=== PATIENT | male | born 1945 | race Caucasian/White ===

== ENCOUNTER 2016-08-06 07:07 | Day surgery (SDC) | payer MEDICARE, BC ==
[2016-08-06 07:54] LABS: LEUKOCYTES/URINE NEG (NEGATIVE); NITRITE/URINE NEG (NEGATIVE); RBC/URINE 40-50 (0-2); URINE OCCULT BLOOD 2+ (NEG/TRACE); WBC/URINE 0-2 (0-2)
[2016-08-06 08:00] LABS: AUTOMATED BASOPHIL 0.7 % (0-2); AUTOMATED EOSINOPHIL 2.1 % (0-5); AUTOMATED LYMPH 21.1 % (17-44); AUTOMATED MONOCYTE 8.8 % (3-10); AUTOMATED NEUTROPHIL 67.3 % (45-76); MPV 9.1 fL (7.4-10.4)
[2016-08-06] MEDS ORDERED: BUPIVACAINE 0.5% 30 ML VIAL ONE (08:11)
[2016-08-06 08:12] LABS: BLOOD UREA NITROGEN 27 MG/DL (9-20); CALCULATED OSMOLALITY 280 MOs/Kg (270-290); CHLORIDE 108 mEq/L (98-107); GLUCOSE 127 MG/DL (70-99); SODIUM LEVEL 142 mEq/L (137-146); TOTAL PROTEIN 7.8 G/DL (6.3-8.2)
--- NOTE | 2016-08-06 08:22 | HIM.ANES ---
Anesthesia Evaluation & Plan Diagnoses: INCISIONAL HERNIA WITHOUT OBSTRUCTION OR GANGRENE (08/06/16) Consented Procedure: LAPAROSCOPIC INCISIONAL HERNIA REPAIR - Focused Review of Systems Cardiac History: No: Hx Hypertension, Hx Angina, Hx Heart Attack, Hx Coronary Stent, Hx Cardiac Disorders HEENT: Yes: Hx Hearing Impairment ([place]), Other HEENT Problems Hx Other HEENT Problems: ALLERGIC RHINNITIS Respiratory: Yes: Hx Sleep Apnea (MILD DOES NOT NEED CPAP MACHINE), Hx Snoring No: Hx Pneumonia () Gastrointestinal: Yes: Hx Gastroesophageal Reflux Disease, Hx Hiatal Hernia, Hx Gastrointestinal Disorders, Hx Colonoscopy (2012), Hx Endoscopy (2012) Neurological/Musculoskeletal: No: HX Cerebrovascular Accident, Hx Neurological Disorders Psychological: No Hx Depression, No Hx Mental/Emotional Disorders Blood/Autoimmune: Yes: Hx Blood Transfusions (05/2013 MULTIPLE BLOOD TRANSFUSIONS), Hx Anemia No: Hx AIDS, Hx Hepatitis (type) Smoking Status: Former smoker Surgical History: Yes: Back (CERVICAL FUSION) Other Surgical History: 05/2013 LAPROSCOPIC SURGERY TO STOP GASTRIC BLEEDING-2012 LEFT KIDNEY STONE REMOVAL SKIN LESION REMOVAL ON EAR - Focused Physical Exam NPO since: 08/05/161999 Mallampati: Class II Thyromental Distance: Greater than 3 Neck: Limited Range of Motion Dental: Normal - no significant findings Cardiovascular/Chest: Normal Respiratory: Decreased breath sounds Any problems with anesthesia, including nausea and vomiting?: No Any relatives with a history of Malignant Hyperthermia?: No Does patient have a history of Malignant Hyperthermia?: No Beta Laura given (if appropriate): N/A Does the patient have a history of Motion Sickness-: Yes Other: Problem List Problem Status Onset Acute respiratory failure Acute Debility Acute Duodenal ulcer with hemorrhage Acute Gastric ulcer with hemorrhage Acute Gastrointestinal hemorrhage requiring more than four units of blood in 24 hours , admission to ICU, or surgery Acute MRSA pneumonia Acute Migraine headache without aura Acute Osteomyelitis hip Acute Shocks, hemorrhagic Acute Systemic inflammatory response syndrome (SIRS) Acute CBC/BMP/Other 08/06/16 07:50 08/06/16 07:50 Allergies Allergy/AdvReac Type Severity Reaction Status Date / Time No Known Allergies Allergy Verified 08/06/16 08:13 Home Medications Medication Instructions Recorded Last Taken Type Pantoprazole Sodium [Protonix] 40 mg PO DAILY 08/27/13 08/05/16 07:00 History Height and Weight Patient's height 5 ft 10 in Patient's weight 95.254 kg BMI 28.7 Vital Signs Temperature 99.0 F 08/06/16 08:02 Pulse Rate 57 L 08/06/16 08:02 Respiratory Rate 18 08/06/16 08:02 Blood Pressure 130/66 08/06/16 08:02 Pulse Oxygen Saturation 95 08/06/16 08:02 METS - Level of Activity: Climbing stairs(1 flight),walking level ground, running short distance - Anesthetic Plan Anesthesia Type: General ASA Class: 3 -: I have examined this patient and reviewed the medical record. The patient has been assessed prior to anesthesia. Risks and benefits of anesthesia and anesthetic technique options have been discussed and all questions answered. The patient accepts the risk and desires me to proceed with the planned anesthetic.
[2016-08-06] MEDS ORDERED: MEPERIDINE 25 MG/ML TUBEX IV PRN ×2 (08:32→08:35)
[2016-08-06] MEDS ORDERED: hydrALAZINE 20 MG/ML VIAL IV PRN ×2 (08:32→08:35)
[2016-08-06] MEDS ORDERED: ONDANSETRON HCL 4 MG/2 ML VIAL IV PRN ×3 (08:32→11:57)
[2016-08-06] MEDS ORDERED: HYDROmorphone 1 MG INJECTION IV PRN ×4 (08:32→08:35)
[2016-08-06] MEDS ORDERED: ONDANSETRON HCL 4 MG ODT TAB PO PRN ×2 (08:32→08:35)
[2016-08-06] MEDS ORDERED: LABETALOL 20 MG/4 ML SYRINGE IV PRN ×2 (08:32→08:35)
[2016-08-06] MEDS ORDERED: SCOPOLAMINE TRANSDERMAL PATCH TOP ONE ×2 (08:32→08:36)
[2016-08-06] MEDS ORDERED: FENTANYL 100 MCG/2 ML VIAL IV PRN ×3 (08:32→08:35)
[2016-08-06] MEDS ORDERED: CEFAZOLIN 1 GM VIAL ONE (08:39)
--- NOTE | 2016-08-06 10:49 | HIMOPRPT ---
DATE OF PROCEDURE: 08/06/16 PREOPERATIVE DIAGNOSIS: Incarcerated incisional hernia, incarcerated umbilical hernia. POSTOPERATIVE DIAGNOSIS: Incarcerated incisional hernia incarcerated umbilical hernia. PROCEDURE: Laparoscopic repair of incarcerated incisional hernia with placement of mesh (11 cm silicone coated mesh by Surgimesh), laparoscopic repair of incarcerated umbilical hernia with placement of mesh (6.4 cm Ventralex). SURGEON: Christopher Martinez M.D. ANESTHESIA: General. COMPLICATIONS: None. SPECIMEN: None. PACKINGS AND DRAINS: None. ESTIMATED BLOOD LOSS: 3 cc OPERATIVE FINDINGS AND TECHNIQUE: With consent, the patient was brought to the operative suite and placed in supine position. Following general anesthesia, the abdomen was prepped and draped in usual fashion. A left upper quadrant incision was made. Dissection was carried down to the musculofascial layers and the peritoneal cavity was entered under direct vision. Stay sutures of 0-Vicryl were placed. The balloon Marlys trocar was placed. The abdominal cavity was insufflated with carbon dioxide creating pneumoperitoneum. There are omental adhesions incarcerated through the hernia in the prior midline abdominal incision. There is also a piece of omentum incarcerated through an umbilical hernia. The hernias were by at least 11 cm of good quality fascia. Additional trocars were then placed. A 5-mm trocar was placed in left lower quadrant. An additional 5-mm trocar was placed in right upper quadrant. In each case, skin incision was made with skin knife and trocars entered the peritoneal cavity under videoscopic guidance. Adhesiolysis was performed using Harmonic Scalpel. There are 2 obvious hernias and the total measurement of these was identified. The incisional hernia was 2 cm in diameter was circular in nature. A 11 cm circular silicone coated mesh by Surgimesh was chosen for the repair. Stay sutures of 0-Vicryl were placed in four quadrants of the mesh. The mesh was placed into peritoneum and transfascial fixation was undertaken. This was perfomed using the suture grasping instrument. The AbsorbaTack securing device was used to secure the hernia mesh in a double-crown technique. Additional transfascial fixation sutures were placed for a total of 8. The mesh was secured in place. Hemostasis was achieved. Trocars were sequentially removed. There is no bleeding from the trocar insertion sites. The umbilical hernia was 1 cm in diameter was circular in nature. A 6.4 cm Ventralex was chosen for the repair. Stay sutures of 0-Vicryl were placed in four quadrants of the mesh. The mesh was placed into peritoneum and transfascial fixation was undertaken. This was perfomed using the suture grasping instrument. The AbsorbaTack securing device was used to secure the hernia mesh in a double-crown technique. Additional transfascial fixation sutures were placed for a total of 6. The mesh was secured in place. Hemostasis was achieved. Trocars were sequentially removed. There is no bleeding from the trocar insertion sites. The fascia of the left upper quadrant incision was closed in layers using 0- Vicryl suture. All wounds were irrigated and dried. All wounds were injected with 0.5% Marcaine. Each skin incision was approximated using 4-0 Monocryl in subcuticular fashion. Dermabond, 2 x 2 gauze, and Tegaderm dressings were applied to the wounds. The patient tolerated the procedure well with findings as described. At termination of the procedure, all instrument, sponge, and needle counts were correct. There was no pathologic specimen.
[2016-08-06] MEDS ORDERED: FENTANYL 100 MCG/2 ML VIAL ONE (11:19)
[2016-08-06] MEDS: FENTANYL 100 MCG/2 ML VIAL IV PRN ×2 (11:22→11:34)
[2016-08-06] MEDS ORDERED: ZOLPIDEM TARTRATE 5 MG TAB PO PRN (11:57)
[2016-08-06] MEDS ORDERED: DIPHENHYDRAMINE 25 MG CAP PO PRN (11:57)
[2016-08-06] MEDS ORDERED: LORAZEPAM 2 MG/ML VIAL IV PRN (11:57)
[2016-08-06] MEDS ORDERED: DOCUSATE-SENNA CONCENTRATE TAB PO PRN (11:57)
[2016-08-06] MEDS ORDERED: PROMETHAZINE 25 MG/ML VIAL IV PRN (11:57)
[2016-08-06] MEDS ORDERED: ACETAMINOPHEN 650 MG SUPP PR PRN (11:57)
[2016-08-06] MEDS ORDERED: Albuterol/Ipratropium Neb 3 ML NEB NEB PRN (11:57)
[2016-08-06] MEDS ORDERED: MORPHINE PCA 50 ML IV PRN (11:57)
[2016-08-06] MEDS ORDERED: OXYCODONE HCL 5 MG TABLET PO PRN (11:57)
[2016-08-06] MEDS ORDERED: ACETAMINOPHEN 325 MG/TAB TABLET PO PRN (11:57)
[2016-08-06] MEDS ORDERED: Aluminum;Magnesium;Simethicone 30 ML UDC PO PRN (11:57)
[2016-08-06] MEDS ORDERED: Pharmacy Change IV Fluid Rate to KVO XX SCH (11:57)
[2016-08-06] MEDS: LR 1,000 ML IV SCH ×2 (12:48→17:01)
[2016-08-06] MEDS ORDERED: Vaccine Screening Complete SCH (13:00)
--- NOTE | 2016-08-06 13:52 | SC.ANESPOS ---
Post-Anesthesia Note LOC: Fully Awake Post-Anesthesia Assessment: Awake, Returned to Baseline, Hemodynamically Stable , Pain Control Adequate Phase I & II Recovery Complete: Yes Apparent Anesthesia Complication: No : N - Vital Signs Blood Pressure: 149/81 Pulse: 51 Resp Rate: 18 O2 Sat: 92 Temp: 97.2 F
[2016-08-06] MEDS ORDERED: DEXAMETHASONE 4 MG/ML VIAL IV ONE (14:48)
[2016-08-06] MEDS ORDERED: SUCCINYLCHOLINE 20 MG/1 ML INJ 10 ML MDV IV ONE (14:48)
[2016-08-06] MEDS ORDERED: ROCURONIUM 50 MG/5 ML VIAL IV ONE (14:48)
[2016-08-06] MEDS ORDERED: LIDOCAINE 100 MG PFS IV ONE (14:48)
[2016-08-06] MEDS ORDERED: GLYCOPYRROLATE 1 MG VIAL IM ONE (14:48)
[2016-08-06] MEDS ORDERED: FENTANYL 250 MCG/5 ML VIAL IV ONE (14:48)
[2016-08-06] MEDS ORDERED: NEOSTIGMINE 1 MG/1 ML (1:1000) INJ 10 ML MDV IM ONE (14:48)
[2016-08-06] MEDS ORDERED: PROPOFOL 200 MG/20 ML VIAL IV ONE (14:48)
[2016-08-06] MEDS ORDERED: LABETALOL 5 MG/ML MDV IV ONE (14:48)
[2016-08-06] MEDS ORDERED: ONDANSETRON HCL 4 MG/2 ML VIAL IV ONE (14:48)
[2016-08-06] MEDS ORDERED: ENOXAPARIN 40 MG/0.4 ML PFS SQ SCH (22:50)
[2016-08-07] MEDS ORDERED: PANTOPRAZOLE 40 MG TAB PO SCH (06:00)
[2016-08-07] MEDS: LR 1,000 ML IV SCH ×2 (06:10→13:36)
[2016-08-07 09:25] VITALS: PULSE 60
[2016-08-07 10:06] VITALS: BP 127/67; TEMP 98
--- NOTE | 2016-08-07 10:11 | PCM.DCS92 ---
- Final/Secondary Discharge Diagnosis (1) Incisional hernia Resolved K43.2 - INCISIONAL HERNIA WITHOUT OBSTRUCTION OR GANGRENE Present on Admission: Yes without obstruction or gangrene K43.2 - Incisional hernia without obstruction or gangrene Plan/Goal/Comment: Patient is postop day 1. Status post laparoscopic repair of incisional hernia as well as umbilical hernia with mesh. He has recovered well. Room air pulse oximetry shows his oxygen saturation 92%. He has some abdominal discomfort. However he is voiding well, he is ambulating well, and he is tolerating liquid diet well. He has no fevers today. He is deemed stable candidate for discharge home. Discharge instructions were discussed. He will be followed up in the office. Discharge Disposition: Home Discharge Condition: Stable Cognitive Discharge Status: Unimpaired Fuctional Discharge Status: Independent Physician Follow up/Referrals: Christopher Martinez MD [Staff Physician] - Keep Scheduled Appt Home Medications/ New Prescriptions: New Oxycodone Immediate Release [Oxy-Ir] 5 mg PO Q4H PRN #40 tab PRN Reason: Pain Promethazine HCl [Phenergan] 12.5 mg PO Q6 PRN #30 tablet PRN Reason: Nausea/Vomiting Continue Pantoprazole Sodium [Protonix] 40 mg PO DAILY Diet at Discharge: As Tolerated Activity: No Heavy Lifting, No Driving Call Office For: Worsening Symptoms, Wound is Draining Pus, Fever over 101 F Discontinue use of:: Alcohol, All Illegal Substances, All Types of Tobacco - DC Summary Notes Hospital Course Note:: Discharge summary on patient named DIANA VICKERS JR admitted to [facility] on 08/06/16 by Christopher Martinez MD. Date of discharge is 08/07/2016. Patient underwent a laparoscopic repair of incisional hernia as well as umbilical hernia with mesh. He was observed in the hospital overnight. He remained on oxygen overnight, however postop day 1. He was weaned to room air and room air oxygen saturation was 92%. Patient's pain was under better control. He was ambulating well, he was voiding well, and he is tolerating liquid diet well. He was deemed stable candidate for discharge home on 2016. Discharge instructions were discussed at length the patient. Wound care was discussed. He will be followed up in the office. Please see the electronic medical record discharge summary for full details regarding the instructions. Patient and admitted verbal understanding to the discharge instructions. The patient was subsequently discharged in stable condition. Wound Care Surgical Site: Yes Site Description (if applicable): Abdomen May Shower Starting:: Today Remove Clear Dressing In How Many Days?: Ten Ability To Perform Care (if applicable): Yes - Physical Exam Vital Signs: Initial Vitals Temperature 99.0 F 08/06/16 08:02 Pulse Rate 57 L 08/06/16 08:02 Respiratory Rate 18 08/06/16 08:02 Blood Pressure 130/66 08/06/16 08:02 Pulse Oxygen Saturation 95 08/06/16 08:02 Constitutional: No apparent distress Respiratory: Normal - CTA Cardiovascular: Normal - GI Auscultation: Normal Palpation: Normal Tenderness: Mild (At all the incisions)
== END 2016-08-07 14:13 | disposition home or self-care (01) ==
LOC: SDC 07:07 → MPS3 11:48
PROVIDERS: ADMIT Surgery Vascular Surgery; ATTEND Surgery Vascular Surgery
PROC: 0WUF4JZ Supplement Abdominal Wall with Synthetic Substitute, Percutaneous Endoscopic Approach (ICD-10-PCS; 2016-08-06)
PROC: 0WUF4JZ Supplement Abdominal Wall with Synthetic Substitute, Percutaneous Endoscopic Approach (ICD-10-PCS; principal; 2016-08-06 08:35)
DX: K43.0 Incisional hernia with obstruction, without gangrene (principal); K42.9 Umbilical hernia without obstruction or gangrene; K66.0 Peritoneal adhesions (postprocedural) (postinfection); E66.9 Obesity, unspecified; Z68.35 Body mass index [BMI] 35.0-35.9, adult; Z87.891 Personal history of nicotine dependence; G47.30 Sleep apnea, unspecified
CPT/HCPCS: 49653; 49655; 80053; 81001; 85025; 87641; 96372; A9270; C1781; G0237; G0378; J0330; J0690; J1100; J1650; J2001; J2405; J2710; J3010; J3490